=== PATIENT | male | born 1960 | race American Indian/Alaskan Native ===

== ENCOUNTER 2017-06-10 05:15 | Emergency (ER) | payer SELFPAY ==
[2017-06-10 05:47] VITALS: BP 119/92
[2017-06-10 06:07] LABS: Basophils # (Auto) 0.1 K/mm3 (0.0-0.1); Basophils % (Auto) 1.2 % (0.0-1.8); Eosinophils # (Auto) 0.1 K/mm3 (0.0-0.4); Eosinophils % (Auto) 2.1 % (0.0-4.3); Hematocrit 40.1 % (35.5-45.6); Hemoglobin 13.8 gm/dl (11.8-15.2); Lymphocytes # (Auto) 1.7 K/mm3 (1.2-5.4); Mean Corpuscular HGB Conc 35 % (32-34); Mean Corpuscular Hemoglobin 33 pg (28-32); Mean Corpuscular Volume 95 fl (84-94); Monocytes # (Auto) 0.3 K/mm3 (0.0-0.8); Monocytes % (Auto) 6.7 % (0.0-7.3); Platelet Count 242 K/mm3 (140-440); Red Blood Count 4.21 M/mm3 (3.65-5.03); Red Cell Distribution Width 12.1 % (13.2-15.2)
[2017-06-10 06:29] LABS: Alanine Aminotransferase 61 units/L (7-56); BUN/Creatinine Ratio 19; Blood Urea Nitrogen 15 mg/dL (9-20); Calcium 8.7 mg/dL (8.4-10.2); Hemolysis Index 5
== END 2017-06-10 07:25 | disposition left against medical advice (07) ==
LOC: ED 05:15
DX: R42 Dizziness and giddiness (principal); Z53.21 Procedure and treatment not carried out due to patient leaving prior to being seen by health care provider
CPT/HCPCS: 36415; 80053; 85025

== ENCOUNTER 2022-01-06 23:32 | Emergency (ER) | payer SELFPAY ==
[2022-01-06 23:48] VITALS: BP 137/92
[2022-01-06 23:58] LABS: Hematocrit 37.6 % (35.5-45.6); Hemoglobin 12.8 gm/dl (11.8-15.2); Mean Corpuscular HGB Conc 34 % (32-34); Mean Corpuscular Volume 94 fl (84-94); Platelet Count 275 K/mm3 (140-440); Red Blood Count 4.02 M/mm3 (3.65-5.03); Red Cell Distribution Width 13.6 % (13.2-15.2)
--- NOTE | 2022-01-07 00:04 | XRay Report ---
CHEST 2 VIEWS INDICATION / CLINICAL INFORMATION: CHEST PAIN. COMPARISON: None available. FINDINGS: SUPPORT DEVICES: None. HEART / MEDIASTINUM: No significant abnormality. LUNGS / PLEURA: Mild peribronchial cuffing. No focal consolidation pleural effusion no large pneumoth orax ADDITIONAL FINDINGS: No significant additional findings. IMPRESSION: 1. No acute findings. Signer Name: Richard Delgado MD Signed: 01/07/2022 12:00 AM Workstation Name: [id number]
[2022-01-07 00:15] LABS: Alanine Aminotransferase 30 units/L (7-56); Albumin 4.1 g/dL (3.9-5); BUN/Creatinine Ratio 21; Blood Urea Nitrogen 25 mg/dL (9-20); Calcium 9.6 mg/dL (8.4-10.2); Hemolysis Index 4
[2022-01-07 00:38] LABS: Platelet Estimate Consistent w Auto; Total Cells Counted 100
--- NOTE | 2022-01-08 21:51 | Electrocardiograph Report ---
[facility] Test Date: 2022-01-06 Test Time: 23:37:53 Pat Name: JEANNE SERNA Department: Room: Gender: M [employer] Supervisor: LI : 1960 Requested By: ED DOC Order Number: [id number] Reading MD: [facility] Measurements Intervals [place] Rate: 75 P: 45 DC: 144 QRS: 74 QRSD: 85 T: 60 QT: 387 QTc: 433 Interpretive Statements Sinus rhythm No previous ECG available for comparison Electronically Signed On 01-08-2022 21:50:34 EDT by [facility]
== END 2022-01-08 09:25 | disposition left against medical advice (07) ==
LOC: ED 23:32
DX: R07.89 Other chest pain (principal); Z53.21 Procedure and treatment not carried out due to patient leaving prior to being seen by health care provider
CPT/HCPCS: 36415; 71046; 80053; 84484; 85007; 85025; 93005